=== PATIENT | female | born 1945 | race Two or more races ===

== ENCOUNTER 2025-02-04 09:59 | Emergency (ER) | payer OTHER ==
[~2025-02-04] VITALS: Ht 160 cm; Wt 68.1 kg
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
[2025-02-04] MEDS: ONDANSETRON HCL 4 MG/2 ML VIAL IV ONE (10:22)
[2025-02-04] MEDS: SODIUM CHLORIDE 0.9% 500 ML IVB ONE (10:22)
[2025-02-04] MEDS: MORPHINE SULFATE 4 MG/ML SYR/VIAL IV ONE (10:23)
[2025-02-04] MEDS: SILVER SULFADIAZINE 1 % TOPICAL CREAM 50GM TOP ONE (11:20)
[2025-02-04] MEDS ORDERED: SILV1CRE82 TOP (14:08)
[2025-02-04] MEDS ORDERED: HYDR-4902 PO (14:16)
[2025-02-04 14:23] VITALS: BP 138/87; PULSE 78; RESP 16; TEMP 99; O2SAT 97
== END 2025-02-04 14:26 | disposition home or self-care (01) ==
LOC: ER 09:59
DX: T24.211A Burn of second degree of right thigh, initial encounter (principal); T24.212A Burn of second degree of left thigh, initial encounter; Z90.710 Acquired absence of both cervix and uterus; Z98.890 Other specified postprocedural states; Z79.899 Other long term (current) drug therapy; X12.XXXA Contact with other hot fluids, initial encounter; Y93.89 Activity, other specified; Y92.89 Other specified places as the place of occurrence of the external cause; Y99.8 Other external cause status
CPT/HCPCS: 16020; 96361; 96374; 96375; 99284; J2270; J2405; J7040